=== PATIENT | male | born 1960 | race Caucasian/White ===

== ENCOUNTER → 2016-11-23 | Outpatient (CLI) | payer BC ==
[~2016-11-23] MED LIST: ALFU10TA2 PO; ATOR1TAB21 PO; HYDR-3716 PO; LOSA50TA20 PO; VESI5TAB PO
== END ==
LOC: M SMT 08:03
PROVIDERS: ATTEND Urology
DX: R39.15 Urgency of urination (principal); Z12.5 Encounter for screening for malignant neoplasm of prostate

== ENCOUNTER → 2016-12-27 | Outpatient (CLI) | payer OTHER | LOC: M WUC 15:40 | PROVIDERS: ATTEND Physician Assistant | DX: S90.01XA Contusion of right ankle, initial encounter (principal); X58.XXXA Exposure to other specified factors, initial encounter; Y92.89 Other specified places as the place of occurrence of the external cause; Y93.89 Activity, other specified; Y99.8 Other external cause status ==

== ENCOUNTER → 2017-05-30 | Outpatient (CLI) | payer BC ==
[~2017-05-30] MED LIST changes: -VESI5TAB PO; +VESI5TAB2 PO
[2017-05-30 06:57] LABS: MEAN CORPUSCULAR HEMOGLOBIN 29.9 pg (27.0-33.0); MEAN CORPUSCULAR HGB CONC 34.3 g/dl (32.0-36.5); MEAN CORPUSCULAR VOLUME 87.2 fl (80.0-96.0); PLATELET COUNT, AUTOMATED 209 10^3/uL (150-450); RED CELL DISTRIBUTION WIDTH 12.9 % (11.5-14.5)
[2017-05-30 07:29] LABS: ALBUMIN/GLOBULIN RATIO 1.48 (1.00-1.93); ALKALINE PHOSPHATASE 74 U/L (45-117); ALT/SGPT 37 U/L (12-78); ANION GAP 7 MEQ/L (8-16); AST/SGOT 25 U/L (7-37); BILIRUBIN,TOTAL 0.4 MG/DL (0.2-1.0); BLOOD UREA NITROGEN 15 MG/DL (7-18); CALCIUM LEVEL 9.1 MG/DL (8.5-10.1); CARBON DIOXIDE LEVEL 25 MEQ/L (21-32); CHLORIDE LEVEL 110 MEQ/L (98-107); CHOLESTEROL LEVEL 179 MG/DL (<200); CREATININE FOR GFR 1.05 MG/DL (0.70-1.30); GLOMERULAR FILTRATION RATE > 60.0 (>56); GLUCOSE, FASTING 97 MG/DL (70-105); POTASSIUM SERUM 4.3 MEQ/L (3.5-5.1); SODIUM LEVEL 142 MEQ/L (136-145); TOTAL PROTEIN 6.7 GM/DL (6.4-8.2); TRIGLYCERIDES LEVEL 98 MG/DL (<150)
--- NOTE | 2017-05-30 07:45 | REP ---
Clinical: Hypertension and fatigue . Comparison: 04/10/2012 . Technique: PA and lateral. Findings: The mediastinum and cardiac silhouette are normal. The lung quinonez are clear and without acute consolidation, effusion, or pneumothorax. The skeletal structures are intact and normal. Impression: 1. No acute cardiopulmonary process. Signed by Ascencion Lomas MD 05/30/2017 07:36 A
--- NOTE | 2017-05-30 21:52 | ECGEPIP ---
Stationary ECG Study [facility] Test Date: 2017-05-30 Pat Name: EDI SMALL Department: Room: - Gender: M Senior Javascript Engineer: Ana María : 1960 Requested By: Frederick Garrett Order Number: [id number] Reading MD: Alberto Funez Measurements Intervals [place] Rate: 69 P: 59 [place]: 182 QRS: -4 QRSD: 138 T: 34 QT: 393 QTc: 423 Interpretive Statements Normal sinus rhythm Right bundle branch block No significant change when compared to prior tracing of 04/10/2012 Electronically Signed On 05-30-2017 21:51:53 EST by Alberto Funez
== END ==
LOC: M RAD 06:14
PROVIDERS: ATTEND Family Medicine
DX: I10 Essential (primary) hypertension (principal); R53.83 Other fatigue

== ENCOUNTER → 2017-10-27 | Outpatient (CLI) | payer BC ==
[2017-10-27 06:53] LABS: APPEARANCE, URINE CLEAR (CLEAR); BACTERIA, URINE AUTO NEGATIVE (NEGATIVE); BILIRUBIN, URINE AUTO NEGATIVE (NEGATIVE); BLOOD, URINE BLOOD NEGATIVE (NEGATIVE); COLOR, URINE YELLOW (YELLOW); GLUCOSE, URINE (UA) AUTO NEGATIVE (NEGATIVE); KETONE, URINE AUTO NEGATIVE (NEGATIVE); LEUKOCYTE ESTERASE, URINE AUTO NEGATIVE (NEGATIVE); NITRITE, URINE AUTO NEGATIVE (NEGATIVE); PROTEIN, URINE AUTO NEGATIVE (NEGATIVE); RBC, URINE AUTO 0 /HPF (0-3); SPECIFIC GRAVITY URINE AUTO 1.016 (1.002-1.035); SQUAMOUS EPITHELIAL CELL UR AU 0 /HPF (0-6); UROBILINOGEN, URINE AUTO 0.2 mg/dL (0.0-2.0); WBC, URINE AUTO 0 /HPF (0-3)
[2017-10-27 07:08] LABS: PROSTATIC SPECIFIC AG MONITOR 0.88 NG/ML (< 4.0)
== END ==
LOC: M LAB 05:58
DX: N41.1 Chronic prostatitis (principal)

== ENCOUNTER 2018-01-17 15:15 | Emergency (ER) | payer BC | END 2018-01-17 16:46 | disposition home or self-care (01) | LOC: M ED 15:15 | DX: R51 Headache (principal); I10 Essential (primary) hypertension; Z87.891 Personal history of nicotine dependence; Z79.899 Other long term (current) drug therapy | CPT/HCPCS: 99283 ==

== ENCOUNTER → 2018-01-31 | Outpatient (CLI) | payer BC | LOC: M RAD 06:24 | DX: R68.84 Jaw pain (principal) | CPT/HCPCS: 70330 ==

== ENCOUNTER → 2018-07-05 | Outpatient (CLI) | payer BC ==
[~2018-07-05] MED LIST changes: -LOSA50TA20 PO; +LOSA50TA88 PO; +MEDR4PAK PO; +NAPR-885 PO
[2018-07-05 06:54] LABS: HEMATOCRIT 44.4 % (42.0-52.0); MEAN CORPUSCULAR HEMOGLOBIN 29.2 pg (27.0-33.0); MEAN CORPUSCULAR HGB CONC 33.8 g/dl (32.0-36.5); MEAN CORPUSCULAR VOLUME 86.5 fl (80.0-96.0); PLATELET COUNT, AUTOMATED 184 10^3/uL (150-450); RED BLOOD COUNT 5.13 10^6/uL (4.30-6.10)
[2018-07-05 07:16] LABS: HEMOGLOBIN A1c 5.6 %
[2018-07-05 07:33] LABS: ALBUMIN 3.8 GM/DL (3.2-5.2); ALT/SGPT 43 U/L (12-78); BILIRUBIN,TOTAL 0.3 MG/DL (0.2-1.0); BLOOD UREA NITROGEN 19 MG/DL (7-18); CALCIUM LEVEL 8.7 MG/DL (8.5-10.1); CARBON DIOXIDE LEVEL 27 MEQ/L (21-32); CHLORIDE LEVEL 108 MEQ/L (98-107); CHOLESTEROL LEVEL 154 MG/DL (<200); CREATININE FOR GFR 0.86 MG/DL (0.70-1.30); GLOMERULAR FILTRATION RATE > 60.0 (>56); GLUCOSE, FASTING 98 MG/DL (70-100); HDL CHOLESTEROL 55 MG/DL (>40); LDL CHOLESTEROL 78 MG/DL (<100); NON-HDL-C 99 MG/DL; POTASSIUM SERUM 4.3 MEQ/L (3.5-5.1); PROSTATIC SPECIFIC AG MONITOR 0.91 NG/ML (< 4.00); SODIUM LEVEL 141 MEQ/L (136-145); TESTOSTERONE 345 NG/DL (241-827); TOTAL PROTEIN 6.9 GM/DL (6.4-8.2); TRIGLYCERIDES LEVEL 105 MG/DL (<150)
== END ==
LOC: M LAB 06:25
PROVIDERS: ATTEND Family Medicine
DX: I10 Essential (primary) hypertension (principal); N40.0 Benign prostatic hyperplasia without lower urinary tract symptoms; R53.83 Other fatigue; E03.9 Hypothyroidism, unspecified

== ENCOUNTER 2018-11-10 09:53 | Emergency (ER) | payer BC ==
[~2018-11-10] VITALS: Ht 182.9 cm; Wt 121.3 kg
[2018-11-10 09:54] VITALS: BP 137/83
[2018-11-10] MEDS ORDERED: HYDR-3716 (10:02)
--- NOTE | 2018-11-10 12:12 | REP ---
RIGHT ELBOW, FOUR VIEWS: There is no evidence of an acute fracture, dislocation or intrinsic bone disease. IMPRESSION: No fracture or dislocation. Electronically Signed by Edouard Edgar MD 11/10/2018 03:47 P
== END 2018-11-10 11:16 | disposition home or self-care (01) ==
LOC: M ED 09:53
DX: S46.201A Unspecified injury of muscle, fascia and tendon of other parts of biceps, right arm, initial encounter (principal); X50.0XXA Overexertion from strenuous movement or load, initial encounter; Y92.410 Unspecified street and highway as the place of occurrence of the external cause; Y93.89 Activity, other specified; Y99.9 Unspecified external cause status; I10 Essential (primary) hypertension; E78.5 Hyperlipidemia, unspecified; Z79.891 Long term (current) use of opiate analgesic; Z79.899 Other long term (current) drug therapy

== ENCOUNTER 2018-11-21 13:46 | Day surgery (SDC) | payer BC ==
[~2018-11-21] VITALS: Ht 182.9 cm; Wt 118.8 kg
[~2018-11-21 13:46] MED LIST changes: +HYDR-3716; +LIDOCAINE 1% MDV 20ML VIAL SQ PRN; +LR 1,000 ML IV ONE
[2018-11-21] MEDS ORDERED: ceFAZolin 2 GM/D5W 50 ML IV BAG (J0690 PER 500MG) As Ordered ONE (14:00)
[2018-11-21] MEDS ORDERED: KETOROLAC 30 MG/ML VIAL (J1885) As Ordered ONE (16:53)
[2018-11-21] MEDS ORDERED: KETOROLAC 30 MG/ML VIAL (J1885) IV ONE (17:15)
[2018-11-21] MEDS ORDERED: PROPOFOL 200 MG/20 ML VIAL As Ordered ONE (18:00)
[2018-11-21] MEDS ORDERED: ONDANSETRON 4MG/2ML VIAL (J2405) As Ordered ONE (18:00)
[2018-11-21] MEDS ORDERED: NEOSTIGMINE 10 MG/10 ML VIAL (J2710) As Ordered ONE (18:00)
[2018-11-21] MEDS ORDERED: KETOROLAC 60 MG/2 ML VIAL (J1885) As Ordered ONE (18:00)
[2018-11-21] MEDS ORDERED: dexameTHASONE 4 MG/ML 1ML VIAL (J1100) As Ordered ONE (18:00)
[2018-11-21] MEDS ORDERED: fentaNYL 100 MCG/2 ML INJECTION (J3010) As Ordered ONE ×2 (18:00→18:47)
[2018-11-21] MEDS ORDERED: LIDOCAINE 2% INJ 100 MG/5 ML SDV (FOR ANES.) As Ordered ONE (18:00)
[2018-11-21] MEDS ORDERED: GLYCOPYRROLATE INJ 0.2 MG/ML 2 ML VIAL As Ordered ONE (18:00)
[2018-11-21] MEDS ORDERED: MIDAZOLAM INJ 2 MG/2 ML VIAL (J2250) As Ordered ONE (18:00)
[2018-11-21] MEDS ORDERED: ROCURONIUM BROMIDE 50 MG/5 ML VIAL As Ordered ONE (18:00)
[2018-11-21] MEDS ORDERED: BUPIVACAINE/EPIN 0.25% 30 ML VIAL As Ordered ONE (18:27)
[2018-11-21] MEDS ORDERED: THROMBIN SOLN 20,000 UNITS KIT As Ordered ONE (19:13)
[2018-11-21] MEDS: PERCOCET 5MG/325MG TAB PO PRN ×2 (20:02→20:31)
[2018-11-21] MEDS ORDERED: PERCOCET 5MG/325MG TAB As Ordered ONE (20:02)
[2018-11-21] MEDS: fentaNYL 100 MCG/2 ML INJECTION (J3010) IV PRN ×2 (20:02→20:20)
[2018-11-21] MEDS ORDERED: MORPHINE 10 MG/ML 1ML VIAL (J2270) IV PRN (20:15)
[2018-11-21] MEDS ORDERED: METOCLOPRAMIDE INJ 10MG/2ML VIAL (J2765) IV PRN (20:15)
[2018-11-21] MEDS ORDERED: LR 1,000 ML IV SCH ×2 (20:15→20:45)
[2018-11-21] MEDS ORDERED: ONDANSETRON 4MG/2ML VIAL (J2405) IV PRN (20:15)
--- NOTE | 2018-11-21 21:42 | RO ---
DATE OF PROCEDURE: 11/21/2018 PREOPERATIVE DIAGNOSIS: Right distal biceps tear. POSTOPERATIVE DIAGNOSIS: Right distal biceps tear. PLANNED PROCEDURE: Repair right distal biceps tendon. PROCEDURE PERFORMED: Repair right distal biceps tendon. SURGEON: Jason Gorman MD SPEECH LANGUAGE PATHOLOGY ASSISTANT: None. PYROTECHNICIAN: Dr. Cardona TYPE OF ANESTHETIC: General. OPERATIVE PREAMBLE: This 58-year-old man sustained a right distal biceps tendon tear after he dropped a couch out of a box when he was buying it. He was trying to lift it up in the parking lot and it dropped out of the box and he sustained acute tear to his distal biceps. This was confirmed on clinical exam and MRI. We talked about the pros, cons, risks, and benefits of going ahead with repair right distal biceps tendon. I reminded him of the risks as well as the risk of potentially needing second proximal incision due to amount of retraction of the tendon on the MRI. He wished to proceed so I marked the right side. DESCRIPTION OF PROCEDURE: patient brought to operating theater and administered general anesthetic. He was placed supine on the operating room table. Hand board was placed on the right side. Two grams IV Ancef was administered prior the start of the case. Right upper extremity was prepped draped in the usual sterile fashion. Preoperative time-out was performed confirming the patient and the site. Limb was exsanguinated with sterile Esmarch bandage and an 18 inch tourniquet was applied and inflated to 250 mmHg. I made a 3-inch incision centered over the radial tuberosity on the volar aspect of the proximal forearm. I carried this dissection down through skin and subcutaneous tissue achieving meticulous hemostasis. I identified the radial tuberosity quite easily. The traction the distal biceps tendon distally was easily to palpate. I then turned my attention towards finding the proximal end of the tendon. This proved quite difficult as it was very retracted. I decided to take down the tourniquet and take off the tourniquet to try milk down the tendon, but again this did not deliver the tendon into the wound unfortunately. As such, I made a second proximal incision transverse fashion same as the first, 5 cm proximal to the first incision overlying the biceps tendon. This proved to find the tendon easily and I delivered it through the distal aspect of the wound. I used the Arthrex distal biceps button kit. I whip stitched the tendon with the #2 FiberWire loop and a straight needle for least five throws and then locked the final throw. I cut the suture in the mid aspect and then passed the suture tails through the button in the typical fashion. I then set that aside. I next turned my attention to finding the radial tuberosity. I fully supinated the hand. I dissected down through to tuberosity. There was some small crossing vessels that had some brisk bleeding that we controlled with direct electrocautery, pressure fibrin spray as well as surgifoam. This settled down after some brisk bleeding after about 10 minutes. By that time the tourniquet had already been taken down and we did control the bleeding well. I then identified the radial tuberosity by fully supinating the hand and by direct palpation. I passed the 3.2 mm spade tip drill in maximum supination. I confirmed the site as just proximal to the radial tuberosity on fluoroscopy. I save these onto the imaging system. I then sized the tendon. The tendon was approximately 8 mm after I performed some gentle small amount of trimming to bulletize the end of the tendon. I then opened the proximal canal with the 8 mm drill. I thoroughly irrigated the bone dust away. I then inserted the button bicortical across the radial tuberosity. I used a tension side technique to deliver the tendon into the previously drilled hole. The button was definitely flipped. The tendon delivered nicely into the drill hole. I then used a 10 x 7 mm Arthrex interference screw to secure the tendon in place as well as backup fixation. I then used a Baker needle to come back through the tendon and doubled down with again a knot on top of the tendon to fully secure it down to bone. The tendon was secure in full extension. Biceps contours were restored. The wounds were thoroughly irrigated followed by closure of the subcutaneous tissue with interrupted #2-0 Vicryl sutures and skin with running #4-0 Monocryl. Skin was cleaned with wet and dry dressing followed by application of Mastisol, Steri-Strips and 4 x 8 gauze and ABD dressing. An above elbow sterile cast padding was placed. Then a three-sided plaster of Shruti sized splint was placed with the arm in neutral at approximately 90 degrees of flexion. This was overwrapped with two sterile 6-inch Guerrero bandages and the upper extremity placed in a sling. The patient was woken up from the general anesthetic, transferred off the operating table and was taken to postanesthetic care in stable condition. All sponge, needle, and instrument counts were correct. Estimated blood loss 400 mL. PLAN The patient be discharged home when they are comfortable. They are to remain in the sling and in the splint the next 2 weeks. Followup in clinic in 2 weeks time. Prescription should be faxed into their pharmacy by the office. I talked also to his significant other after surgery as well as the patient.
[2018-11-21 21:55] VITALS: BP 146/86
--- NOTE | 2018-11-22 08:17 | REP ---
Forearm: Limited study, single view, intraoperative. History: Distal biceps tendon. 2 seconds of fluoroscopy time was reported. Findings: A single last image hold fluoroscopically obtained spot radiograph of the proximal forearm documents operative instrument placement. Electronically Signed by Dwayne Young MD 11/22/2018 01:55 P
--- NOTE | 2018-11-22 19:10 | ECGEPIP ---
Stationary ECG Study [facility] Test Date: 2018-11-21 Pat Name: EDI SMALL Department: Room: - Gender: M Soil Tester: : 1960 Requested By: EVE JOHNSTON Order Number: [id number] Reading MD: Yvonne Evans Measurements Intervals [place] Rate: 76 P: 40 [place]: 164 QRS: -21 QRSD: 132 T: 31 QT: 383 QTc: 431 Interpretive Statements SINUS RHYTHM BORDERLINE LEFT AXIS DEVIATION INTRAVENTRICULAR CONDUCTION DELAY SINCE 05/30/17 RIGHT BUNDLE BRANCH BLOCK IS NO LONGER PRESENT Electronically Signed On 11-22-2018 19:10:05 EDT by Yvonne Evans
== END 2018-11-21 22:00 | disposition home or self-care (01) ==
LOC: M SDC 13:46
PROVIDERS: ATTEND Orthopaedic Surgery Sports Medicine
DX: S46.211A Strain of muscle, fascia and tendon of other parts of biceps, right arm, initial encounter (principal); I10 Essential (primary) hypertension; E78.5 Hyperlipidemia, unspecified; Z87.891 Personal history of nicotine dependence; Z79.899 Other long term (current) drug therapy; Y92.481 Parking lot as the place of occurrence of the external cause; Y93.89 Activity, other specified
CPT/HCPCS: 24342; 73090; 86850; 86900; 86901; 86920; 93005; C1713; J0690; J1100; J1885; J2250; J2405; J2710; J3010

== ENCOUNTER → 2019-07-18 | Outpatient (CLI) | payer OTHER ==
[~2019-07-18] MED LIST changes: -ALFU10TA2 PO; +ALFU10TA3 PO; -LIDOCAINE 1% MDV 20ML VIAL SQ PRN; -LR 1,000 ML IV ONE
[2019-07-18 06:53] LABS: HEMOGLOBIN 15.2 g/dl (13.5-17.5); MEAN CORPUSCULAR HEMOGLOBIN 28.3 pg (27.0-33.0); MEAN CORPUSCULAR HGB CONC 32.3 g/dl (32.0-36.5); MEAN CORPUSCULAR VOLUME 87.4 fl (80.0-96.0); PLATELET COUNT, AUTOMATED 219 10^3/uL (150-450); RED BLOOD COUNT 5.38 10^6/uL (4.30-6.10); WHITE BLOOD COUNT 9.4 10^3/uL (4.0-10.0)
[2019-07-18 07:08] LABS: HEMOGLOBIN A1c 5.3 %
[2019-07-18 07:29] LABS: ALBUMIN 4.1 GM/DL (3.2-5.2); ALT/SGPT 40 U/L (12-78); BILIRUBIN,TOTAL 0.5 MG/DL (0.2-1.0); BLOOD UREA NITROGEN 17 MG/DL (7-18); CALCIUM LEVEL 9.5 MG/DL (8.5-10.1); CARBON DIOXIDE LEVEL 24 MEQ/L (21-32); CHLORIDE LEVEL 110 MEQ/L (98-107); CHOLESTEROL LEVEL 175 MG/DL (<200); CHOLESTEROL RISK RATIO 3.301 (<5); CREATININE FOR GFR 0.97 MG/DL (0.70-1.30); GLOMERULAR FILTRATION RATE > 60.0 (>56); GLUCOSE, FASTING 96 MG/DL (70-100); HDL CHOLESTEROL 53 MG/DL (>40); LDL CHOLESTEROL 100 MG/DL (<100); NON-HDL-C 122 MG/DL; POTASSIUM SERUM 4.5 MEQ/L (3.5-5.1); PROSTATIC SPECIFIC AG MONITOR 1.06 NG/ML (< 4.00); SODIUM LEVEL 142 MEQ/L (136-145); THYROID STIMULATING HORMONE 0.825 uIU/ML (0.358-3.740); TOTAL PROTEIN 7.1 GM/DL (6.4-8.2); TRIGLYCERIDES LEVEL 109 MG/DL (<150)
[2019-07-19 17:23] LABS: TESTOSTERONE 420 NG/DL (241-827)
== END ==
LOC: M LAB 06:07
PROVIDERS: ATTEND Family Medicine
DX: E03.9 Hypothyroidism, unspecified (principal); I10 Essential (primary) hypertension; R53.83 Other fatigue

== ENCOUNTER → 2019-12-17 | Outpatient (CLI) | payer OTHER | LOC: M LAB 08:42 | PROVIDERS: ATTEND Family Medicine | DX: M54.30 Sciatica, unspecified side (principal); Z79.891 Long term (current) use of opiate analgesic ==

== ENCOUNTER → 2020-04-11 | Outpatient (CLI) | payer OTHER ==
[2020-04-11 14:54] LABS: APPEARANCE, URINE CLEAR (CLEAR); BACTERIA, URINE AUTO NEGATIVE (NEGATIVE); BILIRUBIN, URINE AUTO NEGATIVE (NEGATIVE); BLOOD, URINE BLOOD NEGATIVE (NEGATIVE); COLOR, URINE YELLOW (YELLOW); GLUCOSE, URINE (UA) AUTO NEGATIVE (NEGATIVE); KETONE, URINE AUTO NEGATIVE (NEGATIVE); LEUKOCYTE ESTERASE, URINE AUTO NEGATIVE (NEGATIVE); MUCUS, URINE SMALL (NEGATIVE); NITRITE, URINE AUTO NEGATIVE (NEGATIVE); PROTEIN, URINE AUTO NEGATIVE (NEGATIVE); RBC, URINE AUTO 0 /HPF (0-3); SQUAMOUS EPITHELIAL CELL UR AU 0 /HPF (0-6); UROBILINOGEN, URINE AUTO 0.2 mg/dL (0.0-2.0); WBC, URINE AUTO 0 /HPF (0-3)
== END ==
LOC: M LAB 14:24
PROVIDERS: ATTEND Nurse Practitioner Women's Health
DX: R39.9 Unspecified symptoms and signs involving the genitourinary system (principal); Z12.5 Encounter for screening for malignant neoplasm of prostate
CPT/HCPCS: 36415; 81001; 87086; G0103

== ENCOUNTER → 2020-06-14 | Outpatient (CLI) | payer OTHER ==
[2020-06-14 10:13] LABS: RHEUMATOID FACTOR QUANT < 10.0 IU/ML (<15.0)
[2020-06-15 10:17] LABS: TOTAL 25(OH) VITAMIN D 44.5 NG/ML (30.0-100.0); VITAMIN B12 LEVEL 1012 PG/ML (247-911)
[2020-06-16 14:09] LABS: ANTINUCLEAR ANTIBODIES DIRECT Negative (Negative); SJOGREN'S ANTI SS-A <0.2 AI (0.0-0.9); SJOGREN'S ANTI SS-B <0.2 AI (0.0-0.9)
== END ==
LOC: M LAB 08:11
PROVIDERS: ATTEND Otolaryngology
DX: K14.6 Glossodynia (principal)

== ENCOUNTER → 2020-06-27 | Outpatient (CLI) | payer OTHER ==
[2020-06-27 10:01] LABS: HEMATOCRIT 43.4 % (42.0-52.0); HEMOGLOBIN 14.1 g/dl (13.5-17.5); MEAN CORPUSCULAR HEMOGLOBIN 28.6 pg (27.0-33.0); MEAN CORPUSCULAR HGB CONC 32.5 g/dl (32.0-36.5); PLATELET COUNT, AUTOMATED 217 10^3/uL (150-450); RED BLOOD COUNT 4.93 10^6/uL (4.30-6.10); WHITE BLOOD COUNT 8.2 10^3/uL (4.0-10.0)
[2020-06-27 10:32] LABS: BLOOD UREA NITROGEN 18 MG/DL (7-18); CALCIUM LEVEL 9.6 MG/DL (8.5-10.1); CARBON DIOXIDE LEVEL 28 MEQ/L (21-32); CHLORIDE LEVEL 106 MEQ/L (98-107); CREATININE FOR GFR 0.85 MG/DL (0.70-1.30); GLOMERULAR FILTRATION RATE > 60.0 (>56); GLUCOSE, FASTING 91 MG/DL (70-100); POTASSIUM SERUM 4.5 MEQ/L (3.5-5.1); SODIUM LEVEL 142 MEQ/L (136-145)
[2020-06-27 10:33] LABS: ALBUMIN 4.1 GM/DL (3.2-5.2); ALT/SGPT 69 U/L (12-78); BILIRUBIN,TOTAL 0.5 MG/DL (0.2-1.0); CHOLESTEROL LEVEL 177 MG/DL (<200); CHOLESTEROL RISK RATIO 2.809 (<5); HDL CHOLESTEROL 63 MG/DL (>40); LDL CHOLESTEROL 103 MG/DL (<100); NON-HDL-C 114 MG/DL; PROSTATIC SPECIFIC AG MONITOR 1.01 NG/ML (< 4.00); TOTAL PROTEIN 7.1 GM/DL (6.4-8.2); TRIGLYCERIDES LEVEL 56 MG/DL (<150)
[2020-06-29 13:27] LABS: TESTOSTERONE 397 NG/DL (241-827)
[2020-06-29 13:39] LABS: HEPATITIS B SURFACE ANTIGEN NEGATIVE (NEGATIVE)
[2020-06-29 14:05] LABS: HEPATITIS C VIRUS ABY INDEX 0.1 INDEX (<0.8)
[2020-06-29 14:07] LABS: HEPATITIS A ANTIBODY IGM NEGATIVE (NEGATIVE); HEPATITIS B CORE ANTIBODY IGM NEGATIVE (NEGATIVE)
== END ==
LOC: M LAB 08:22
PROVIDERS: ATTEND Family Medicine
DX: E03.9 Hypothyroidism, unspecified (principal); I10 Essential (primary) hypertension; R53.83 Other fatigue

== ENCOUNTER → 2020-08-09 | Outpatient (CLI) | payer OTHER | LOC: M LAB 08:14 | PROVIDERS: ATTEND Family Medicine | DX: M54.30 Sciatica, unspecified side (principal) ==